=== PATIENT | male | born 1985 | race Caucasian/White ===

== ENCOUNTER 2020-01-27 12:22 | Emergency (ER) | payer OTHER ==
[~2020-01-27] VITALS: Ht 170.2 cm; Wt 74.8 kg
[2020-01-27 12:25] VITALS: BP 152/90
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
--- NOTE | 2020-01-27 12:30 | NUR ---
ED Nurse Note: police reserves commander Raul li # [id number] with [employer] at pt bedside
[2020-01-27] MEDS ORDERED: Acetaminophen 500mg (ES) tab ORAL ONE (12:45)
--- NOTE | 2020-01-27 13:55 | Diagnostic Imaging Report ---
EXAM: CT Head Without Intravenous Contrast CLINICAL HISTORY: TRAUMA TECHNIQUE: Axial computed tomography images of the head/brain without intravenous contrast. CTDI is 68.70 mGy and DLP is 1438.20 mGy-cm. One or more of the following dose reduction techniques were used: automated exposure control, adjustment of the mA and/or kV according to patient size, use of iterative reconstruction technique. Coronal reformatted images were created and reviewed. COMPARISON: No relevant prior studies available. FINDINGS: Brain: Unremarkable. No evidence of acute intracranial hemorrhage. No significant white matter disease. No edema. No mass effect or midline shift. Ventricles: Unremarkable. No ventriculomegaly. Bones/joints: Unremarkable. No depressed skull fracture. Soft tissues: Unremarkable. Sinuses: Unremarkable as visualized. Visualized paranasal sinuses are clear. No sinus air-fluid levels. Mastoid air cells: Unremarkable as visualized. No mastoid effusion. IMPRESSION: Unremarkable noncontrast CT of the head/brain.
--- NOTE | 2020-01-27 13:57 | Diagnostic Imaging Report ---
EXAM: CT Cervical Spine Without Intravenous Contrast CLINICAL HISTORY: TRAUMA TECHNIQUE: Axial computed tomography images of the cervical spine without intravenous contrast. Sagittal and coronal reformatted images were created and reviewed. CTDI is 20.20 mGy and DLP is 538.50 mGy-cm. One or more of the following dose reduction techniques were used: automated exposure control, adjustment of the mA and/or kV according to patient size, use of iterative reconstruction technique. COMPARISON: No relevant prior studies available. FINDINGS: Vertebrae: Unremarkable. No visible displaced fracture. Cervical body heights are preserved. The atlantodens interval appears unremarkable. Discs/spinal canal/neural foramina: No significant disc space narrowing. No osseous central canal or foraminal stenosis. Soft tissues: Unremarkable. IMPRESSION: Unremarkable cervical spine CT.
--- NOTE | 2020-01-27 14:01 | Diagnostic Imaging Report ---
EXAM: CT Maxillofacial Without Intravenous Contrast CLINICAL HISTORY: TRAUMA TECHNIQUE: Axial computed tomography images of the face without intravenous contrast. CTDI is 68.70 mGy and DLP is 1438.20 mGy-cm. One or more of the following dose reduction techniques were used: automated exposure control, adjustment of the mA and/or kV according to patient size, use of iterative reconstruction technique. Coronal reformatted images were created and reviewed. COMPARISON: No relevant prior studies available. FINDINGS: Bones/joints: No facial bone fractures. The nasal bones, maxilla, and mandible appear intact. Nasal septum remains midline. Soft tissues: Mild soft tissue swelling along the forehead and nose. No radiodense foreign bodies. No subcutaneous fluid collections. No subcutaneous emphysema. Orbits: Unremarkable. Bony orbits appear intact. Bilateral globes and intraconal soft tissues appear unremarkable. Sinuses: Incidental note of an 11 mm mucous retention cyst in the right maxillary sinus. The paranasal sinuses are otherwise clear. No air-fluid levels. IMPRESSION: 1. Mild soft tissue swelling along the forehead and nose. 2. No facial bone fractures. 3. Incidental note of an 11 mm mucous retention cyst in the right maxillary sinus. The paranasal sinuses are otherwise clear.
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
--- NOTE | 2020-01-27 14:11 | Diagnostic Imaging Report ---
EXAM: CT Thoracic Spine Without Intravenous Contrast CLINICAL HISTORY: TRAUMA TECHNIQUE: Axial computed tomography images of the thoracic spine without intravenous contrast. Sagittal and coronal reformatted images were created and reviewed. CTDI is 8.30 mGy and DLP is 331.40 mGy-cm. One or more of the following dose reduction techniques were used: automated exposure control, adjustment of the mA and/or kV according to patient size, use of iterative reconstruction technique. COMPARISON: CT of the cervical spine and lumbar spine obtained the same date. FINDINGS: Vertebrae: Unremarkable. Thoracic vertebral body heights are preserved. No acute fracture. Normal alignment. Discs/spinal canal/neural foramina: No spinal canal stenosis. Soft tissues: Unremarkable. IMPRESSION: Normal thoracic spine CT.
--- NOTE | 2020-01-27 14:13 | Diagnostic Imaging Report ---
EXAM: CT Lumbar Spine Without Intravenous Contrast CLINICAL HISTORY: TRAUMA TECHNIQUE: Axial computed tomography images of the lumbar spine without intravenous contrast. Sagittal and coronal reformatted images were created and reviewed. CTDI is 8.50 mGy and DLP is 257.70 mGy-cm. One or more of the following dose reduction techniques were used: automated exposure control, adjustment of the mA and/or kV according to patient size, use of iterative reconstruction technique. COMPARISON: No relevant prior studies available. FINDINGS: Vertebrae: Unremarkable. Lumbar vertebral body heights are preserved. No acute fracture. Normal alignment. Discs/spinal canal/neural foramina: No significant disc space narrowing. No osseous spinal canal or neural foraminal stenosis. Soft tissues: Unremarkable. IMPRESSION: Normal lumbar spine CT.
[2020-01-27] MEDS ORDERED: IBU800 MG PO (14:19)
[2020-01-27] MEDS ORDERED: ROBAXIN-500MG ORAL (14:19)
[2020-01-27 14:30] VITALS: BP 152/90
[2020-01-27] MEDS ORDERED: Ketorolac 30mg Inj IM ONE (14:30)
--- NOTE | 2020-01-27 14:30 | NUR ---
ER DISCHARGE NOTE: Patient is cleared to be discharged per ERMD, pt is aox4, on room air, with stable vital signs. pt was given dc and prescription instructions, pt was able to verbalize understanding, pt id band and iv site removed without complications. pt is able to ambulate with steady gait. pt took all belongings.
== END 2020-01-27 14:30 | disposition home or self-care (01) ==
LOC: EDBD 12:22 → EMR 14:10
DX: S00.93XA Contusion of unspecified part of head, initial encounter (principal); S00.511A Abrasion of lip, initial encounter; S16.1XXA Strain of muscle, fascia and tendon at neck level, initial encounter; S39.012A Strain of muscle, fascia and tendon of lower back, initial encounter; V03.90XA Pedestrian on foot injured in collision with car, pick-up truck or van, unspecified whether traffic or nontraffic accident, initial encounter; Y93.01 Activity, walking, marching and hiking; Y92.411 Interstate highway as the place of occurrence of the external cause
CPT/HCPCS: 70450; 70486; 72125; 72128; 72131; 96372; J1885; Z7502; 99284